=== PATIENT | female | born 1970 | race Caucasian/White ===

== ENCOUNTER → 2016-12-23 | Day surgery (SDC) | payer OTHER ==
--- NOTE | 2016-12-24 14:53 | PATH ---
Cytology Non-Gynecological Report Patient Name: ULISES FELDMAN [facility]. Rec. #: [id number] /Age/Gender: 1970 (Age: 46) / F Account: [id number] Location: [facility] Taken: 12/23/2016 Received: 12/23/2016 Reported: 12/24/2016 Physicians: Torsten Burgos M.D. Specimen(s) Received MISCELLANEOUS FLUID RIGHT BREAST CYST ASPIRATION Clinical History Right breast cyst Final Diagnosis BREAST, RIGHT, 1:00, 7 CM FN, CYST, ASPIRATION : SATISFACTORY FOR EVALUATION. ACELLULAR/CALCIFIC MATERIAL, CONSISTENT WITH CYST CONTENTS. Electronically Signed Phoebe Alexandre M.D. Gross Description Received in 50% alcohol is approximately 50 cc of chalky fluid from which one cytoconcentrate slide and one cell block is prepared.
== END | disposition home or self-care (01) ==
LOC: FRADUS-SUR 09:41
PROVIDERS: ATTEND Surgery Surgical Oncology
PROC: 0H9T3ZX Drainage of Right Breast, Percutaneous Approach, Diagnostic (ICD-10-PCS; principal; 2016-12-23)
DX: N60.01 Solitary cyst of right breast (principal)
CPT/HCPCS: 19000; 76942-TC; 88108

== ENCOUNTER 2017-09-03 13:33 | Emergency (ER) | payer OTHER ==
[2017-09-03 14:01] VITALS: TEMP 98.3; BMI 33.1
--- NOTE | 2017-09-03 14:19 | PDOC ---
History of Present Illness - General Chief Complaint: Pain, Acute Stated Complaint: PAIN/ ABD, BACK Time Seen by Provider: 09/03/17 14:18 - History of Present Illness Initial Comments: 47 year old female with PMH of kidney stones presenting with 2 days of Right lower back pain and right lower abdominal pain. She states that she has had a right lower back pain 2 days prior that has since somewhat migrated to her right lower abdominal quadrant all with decreased appetite. She took some Tylenol with relief. She admits to one episode of non-bilious, non-bloody vomiting with the onset of right lower back pain. She denies urinary symptoms, other GI symptoms, cough, chest pain, headache, palpitations, or other sick symptoms. 09/03/17 14:40 Past History - Past Medical History Allergies/Adverse Reactions: Allergies Allergy/AdvReac Type Severity Reaction Status Date / Time amoxicillin trihydrate Allergy Mild Vomiting Verified 09/03/17 13:59 [From Augmentin] potassium clavulanate Allergy Mild Vomiting Verified 09/03/17 13:59 [From Augmentin] Sulfa (Sulfonamide Allergy Mild Itching Verified 09/03/17 13:59 Antibiotics) Home Medications: Ambulatory Orders NK [No Known Home Medication] 09/03/17 Anemia: No Asthma: Yes (no recent attack) Cancer: No Cardiac Disorders: No CVA: No COPD: No CHF: No Dementia: No Diabetes: No GI Disorders: Yes (gastritis,h/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) Disorders: No HTN: Yes (under control after losing 70 lbs) Hypercholesterolemia: No Kidney Stones: Yes Liver Disease: No Seizures: No Thyroid Disease: No - Surgical History Abdominal Surgery: Yes (UTERUS, OVARIES) Appendectomy: No Cardiac Surgery: No Cholecystectomy: Yes Lung Surgery: No Neurologic Surgery: No Orthopedic Surgery: No - Reproductive History Ectopic : No - Suicide/Smoking/Psychosocial Hx Smoking Status: No Smoking History: Never smoked Have you smoked in the past 12 months: No Number of Cigarettes Smoked Daily: 0 Hx Alcohol Use: No Drug/Substance Use Hx: No Substance Use Type: None Hx Substance Use Treatment: No Review of Systems - Review of Systems Constitutional: No: Chills, Diaphoresis, Fever HEENTM: No: Blurred Vision Respiratory: No: Cough, Shortness of Breath, Wheezing Cardiac (ROS): No: Chest Pain, Lightheadedness ABD/GI: Yes: Poor Appetite, Vomiting. No: Abdominal Distended, Constipated, Diarrhea : No: Burning, Dysuria, Discharge Musculoskeletal: Yes: Back Pain Integumentary: No: Bruising, Change in Color, Erythema, Flushing Neurological: No: Headache, Numbness, Paresthesia, Seizure, Tremors, Weakness *Physical Exam - Vital Signs Last Vital Signs Temp Pulse Resp BP Pulse Ox 98.3 F 77 19 130/95 99 09/03/17 13:59 09/03/17 13:59 09/03/17 13:59 09/03/17 13:59 09/03/17 13:59 - Physical Exam General Appearance: Yes: Nourished, Appropriately Dressed. No: Apparent Distress HEENT: positive: EOMI, SHADY, Normal ENT Inspection, Normal Voice Neck: positive: Trachea midline, Normal Thyroid, Supple. negative: Tender, Rigid Respiratory/Chest: positive: Lungs Clear, Normal Breath Sounds. negative: Chest Tender, Respiratory Distress, Accessory Muscle Use Cardiovascular: positive: Regular Rhythm, Regular Rate. negative: Murmur Gastrointestinal/Abdominal: positive: Normal Bowel Sounds, Tender (RLQ tenderness), Flat, Soft Musculoskeletal: positive: Normal Inspection. negative: CVA Tenderness Extremity: positive: Normal Capillary Refill, Normal Inspection, Normal Range of Motion Integumentary: positive: Normal Color, Dry, Warm Neurologic: positive: Fully Oriented, Alert, Normal Mood/Affect, Normal Response , Motor Strength 5/5 ED Treatment Course - LABORATORY CBC & Chemistry Diagram: 09/03/17 14:38 09/03/17 14:38 Medical Decision Making - Medical Decision Making 47 year old female with PMH of kidney stones presenting with RLQ abd pain and back pain x 2 days. This is most concerning for another kidney stone or an appendicitis. Less likely vascular pathology given lack of risk factors or diverticulitis given location. 09/03/17 15:[address] with non-inflamed appendix and non-dilated bowel loops. No renal stone demonstrated. No acute pathology seen. Symptoms improved after famotidine and viscous lidocaine. 09/03/17 17:49 *DC/Admit/Observation/Transfer Diagnosis at time of Disposition: Abdominal pain Qualifiers: Abdominal location: right lower quadrant Qualified Code(s): R10.31 - Right lower quadrant pain - Discharge Dispostion Disposition: HOME Condition at time of disposition: Improved Admit: No - Referrals Referrals: Gunjan Moura MD [Primary Care Provider] - - Patient Instructions Printed Discharge Instructions: DI for Abdominal Pain-Adult Additional Instructions: Hicimos viktor tomografa computarizada de vasquez abdomen para vasquez dolor abdominal y no vimos ninguna infeccin u obstruccin. Por favor tome Maalox y pepto bismal para el dolor. Por favor, eloisa un seguimiento con vasquez mdico de atencin primaria dentro de viktor semana si vasquez dolor abdominal todava lo est molestando. Si el dolor es demasiado philippe a pesar de usar medicamentos, por favor regrese al departamento de emergencias. Print Language: MOHAWK - Post Discharge Activity
[2017-09-03] MEDS ORDERED: MAG HYDROX/AL HYDROX/SIMETH 30 ML UNIT-DOSE CUP PO ONE (14:41)
[2017-09-03] MEDS ORDERED: MAG HYDROX/AL HYDROX/SIMETH 30 ML UNIT-DOSE CUP ONE (14:52)
[2017-09-03 15:04] LABS: BASOPHIL 0.5 % (0-2.0); EOSINOPHIL 0.8 % (0-4.5); MCH 29.1 pg (25.7-33.7); MCHC 34.2 g/dl (32.0-36.0); MEAN CELL VOLUME 85.1 fl (80-96); MEAN PLT VOLUME 8.4 fl (7.5-11.1); NEUTROPHILS 63.4 % (42.8-82.8); PLATELET COUNT 284 K/MM3 (134-434); RDW 13.1 % (11.6-15.6); WHITE BLOOD COUNT 4.4 K/mm3 (4.0-10.0)
[2017-09-03 15:38] LABS: ALBUMIN 3.8 g/dl (3.4-5.0); ALK PHOS 150 U/L (45-117); ANION GAP 6 (8-16); CALCIUM 8.9 mg/dL (8.5-10.1); CO2 27 mmol/L (21-32); CREATININE 0.7 mg/dL (0.55-1.02); GLUCOSE,RANDOM 88 mg/dL (74-106); MAGNESIUM 2.1 mg/dL (1.8-2.4); SGOT/AST 23 U/L (15-37); SGPT/ALT 41 U/L (12-78); TOT PROT 7.6 g/dl (6.4-8.2)
[2017-09-03 15:42] LABS: URINE APPEARANCE SLCLOUDY; URINE BILIRUBIN NEGATIVE (NEGATIVE); URINE BLOOD NEGATIVE (NEGATIVE); URINE COLOR YELLOW; URINE GLUCOSE (UA) NEGATIVE (NEGATIVE); URINE KETONE NEGATIVE (NEGATIVE); URINE NITRITE NEGATIVE (NEGATIVE); URINE PROTEIN NEGATIVE (NEGATIVE); URINE UROBILINOGEN NEGATIVE mg/dL (0.2-1.0)
--- NOTE | 2017-09-03 15:58 | PDOC ---
Attending Attestation - HPI HPI: 09/03/17 15:58 The patient is a 47 year old with a significant PMH of kidney stones who presents to the emergency department with 4 days of right lower back pain and 2 days of right lower abdominal pain. The patient reports an onset of right lower back pain 4 days ago which has since radiated to her right lower abdomen with associated decreased appetite. Allergies: Amoxicillin trihydrate, Potassium clavulanate,Sulfonamide antibiotics. Past surgical history: Cholecystectomy. 4 C-sections. Hysterectomy. PCP: Dr. Meneses <Artem Newby - Last Filed: 09/03/17 16:00> - Resident Resident Name: Martin Miller - ED Attending Attestation I have performed the following: I have examined & evaluated the patient, The case was reviewed & discussed with the resident, I agree w/resident's findings & plan, Exceptions are as noted - Physicial Exam PE: GENERAL: Awake, alert, and fully oriented, in no acute distress HEAD: No signs of trauma EYES: PERRLA, EOMI, sclera anicteric, conjunctiva clear ENT: Auricles normal inspection, hearing grossly normal, nares patent, oropharynx clear without exudates. Dry mucosa NECK: Normal ROM, supple, no lymphadenopathy, JVD, or masses LUNGS: Breath sounds equal, clear to auscultation bilaterally. No wheezes, and no crackles HEART: Regular rate and rhythm, normal S1 and S2, no murmurs, rubs or gallops ABDOMEN: Soft, +RLQ tenderness, +hyperactive bowel sounds. No guarding, no rebound. No masses EXTREMITIES: Normal range of motion, no edema. No clubbing or cyanosis. No cords, erythema, or tenderness NEUROLOGICAL: Cranial nerves II through XII grossly intact. Normal speech, normal gait SKIN: Warm, Dry, normal turgor, no rashes or lesions noted. - Medical Decision Making Pt with history of hysterectomy, cholecystectomy presenting with abd pain. Noted to have hyperactive bowel sounds and RLQ tenderness. Will obtain CT a/p to r/o appy vs SBO. <Eva Doshi - Last Filed: 09/03/17 16:41>
[2017-09-03] MEDS ORDERED: FAMOTIDINE IV 20 MG/12 ML VIAL IVPB ONE (17:50)
[2017-09-03] MEDS ORDERED: LIDOCAINE VISCOUS 2% ORAL/TOP 100 ML BOTTLE MM ONE (17:52)
[2017-09-03] MEDS ORDERED: PANTOPRAZOLE SOD 40 MG SUSPENSION PACKET PO ONE (17:57)
[2017-09-03] MEDS ORDERED: PANTOPRAZOLE 40 MG TABLET (FP) ONE (17:59)
[2017-09-03] MEDS ORDERED: LIDOCAINE VISCOUS 2% ORAL/TOP 20 ML UNIT-DOSE CUP ONE (17:59)
[2017-09-03 18:10] VITALS: BP 135/97; PULSE 76
[2017-09-03 19:39] LABS: URINE LEUK ESTERASE Negative (NEGATIVE)
== END 2017-09-03 18:41 | disposition home or self-care (01) ==
LOC: JER 13:33
DX: R10.31 Right lower quadrant pain (principal); I10 Essential (primary) hypertension; Z87.442 Personal history of urinary calculi; Z87.09 Personal history of other diseases of the respiratory system; Z87.19 Personal history of other diseases of the digestive system
CPT/HCPCS: 36415; 74176-TC; 80053; 81003; 83690; 83735; 84703; 85025; 87086; 99283-25

== ENCOUNTER 2017-11-24 20:18 | Emergency (ER) | payer OTHER ==
[2017-11-24 20:40] VITALS: BP 122/90; PULSE 87; TEMP 98.3; BMI 33.6
[2017-11-24] MEDS ORDERED: KETOROLAC TROMETHAMINE 60 MG/2 ML VIAL IM ONE (21:27)
[2017-11-24] MEDS ORDERED: KETOROLAC TROMETHAMINE 60 MG/2 ML VIAL ONE (21:28)
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
== END 2017-11-24 21:52 | disposition home or self-care (01) ==
LOC: JERFT 20:18
PROC: 3E0233Z Introduction of Anti-inflammatory into Muscle, Percutaneous Approach (ICD-10-PCS; principal; 2017-11-24)
DX: M54.41 Lumbago with sciatica, right side (principal); I10 Essential (primary) hypertension; J45.909 Unspecified asthma, uncomplicated; Z87.442 Personal history of urinary calculi; Z87.19 Personal history of other diseases of the digestive system
CPT/HCPCS: 99281-25

== ENCOUNTER 2017-11-28 13:31 | Emergency (ER) | payer OTHER ==
[2017-11-28 13:42] VITALS: BP 131/87; PULSE 82; TEMP 98.3; BMI 33.6
[2017-11-28] MEDS ORDERED: DEXAMETHASONE SOD PHOSPHATE 10 MG/1 ML VIAL IM ONE (13:45)
[2017-11-28] MEDS ORDERED: DEXAMETHASONE SOD PHOSPHATE 10 MG/1 ML VIAL ONE (13:50)
--- NOTE | 2017-11-28 13:55 | PDOC ---
History of Present Illness - General Chief Complaint: Back Pain Stated Complaint: BACK PAIN Time Seen by Provider: 11/28/17 13:37 History Source: Patient Exam Limitations: No Limitations - History of Present Illness Initial Comments: 11/28/17 13:50 47 y/o female with lower back pain on right side for 5 days. Was seen at [facility] 5 days ago and given muscle relaxant and Motrin. Patient denies fall, trauma or lifting. No pain down legs or into abdomen. Denies N/V/D/C. Patient has long standing hx of back pain. No fever or chills or procedures. Denies dysuria or incontinence. Pain is worse with movement. Severity: reports: moderate Past History - Past Medical History Allergies/Adverse Reactions: Allergies Allergy/AdvReac Type Severity Reaction Status Date / Time amoxicillin trihydrate Allergy Mild Vomiting Verified 09/03/17 13:59 [From Augmentin] potassium clavulanate Allergy Mild Vomiting Verified 09/03/17 13:59 [From Augmentin] Sulfa (Sulfonamide Allergy Mild Itching Verified 09/03/17 13:59 Antibiotics) Home Medications: Ambulatory Orders Cyclobenzaprine HCl 10 mg PO HS PRN #5 tablet 11/24/17 Famotidine [Pepcid] 20 mg PO BID #20 tablet 11/24/17 Naproxen 375 mg PO BID #20 tablet 11/24/17 Methylprednisolone [Medrol Dose Anup] 4 mg PO ASDIR #21 tablet 11/28/17 Anemia: No Asthma: Yes Cancer: No Cardiac Disorders: No CVA: No COPD: No CHF: No Dementia: No Diabetes: No GI Disorders: Yes (gastritis,h/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) Disorders: Yes (renal stone) HTN: Yes Hypercholesterolemia: No Kidney Stones: Yes Liver Disease: No Seizures: No Thyroid Disease: No - Surgical History Abdominal Surgery: Yes (UTERUS, OVARIES) Appendectomy: No Cardiac Surgery: No Cholecystectomy: Yes Lung Surgery: No Neurologic Surgery: No Orthopedic Surgery: No - Reproductive History Ectopic : No - Suicide/Smoking/Psychosocial Hx Smoking Status: No Smoking History: Never smoked Have you smoked in the past 12 months: No Number of Cigarettes Smoked Daily: 0 Hx Alcohol Use: No Drug/Substance Use Hx: No Substance Use Type: None Hx Substance Use Treatment: No Review of Systems - Review of Systems Able to Perform ROS?: Yes Is the patient limited Turkmen proficient: No Constitutional: No: Chills, Fever Respiratory: No: Cough, Shortness of Breath Cardiac (ROS): No: Chest Pain ABD/GI: No: Diarrhea, Nausea, Vomiting Musculoskeletal: Yes: Back Pain Integumentary: No: Bruising, Erythema Neurological: No: Numbness, Paresthesia All Other Systems: Reviewed and Negative *Physical Exam - Vital Signs Last Vital Signs Temp Pulse Resp BP Pulse Ox 98.3 F 82 20 131/87 100 11/28/17 13:31 11/28/17 13:31 11/28/17 13:31 11/28/17 13:31 11/28/17 13:31 - Physical Exam General Appearance: Yes: Nourished, Appropriately Dressed, Mild Distress HEENT: positive: EOMI, SHADY, Normal ENT Inspection, Normal Voice, Symmetrical, Pharynx Normal Neck: positive: Trachea midline, Normal Thyroid, Supple. negative: Tender, Rigid, Carotid bruit Respiratory/Chest: positive: Lungs Clear, Normal Breath Sounds. negative: Chest Tender, Respiratory Distress Cardiovascular: positive: Regular Rhythm, Regular Rate, S1, S2. negative: Edema , JVD, Murmur Vascular Pulses: Femoral (R): 4+, Femoral (L): 4+, Carotid (R): 4+, Carotid (L) : 4+, Dorsalis-Pedis (R): 4+, Doralis-Pedis (L): 4+ Gastrointestinal/Abdominal: positive: Normal Bowel Sounds, Flat, Soft. negative : Tender, Organomegaly, Pulsatile Mass Lymphatic: negative: Adenopathy, Tenderness, Other Musculoskeletal: positive: Normal Inspection. negative: CVA Tenderness, Vertebral Tenderness (tenderness to right lumbar paravertebral muscles, no spinous process tenderness, full ROM, no erythema, swelling or rash noted) Extremity: positive: Normal Capillary Refill, Normal Inspection, Normal Range of Motion Integumentary: positive: Normal Color, Dry, Warm Neurologic: positive: thread grinder tool II-XII NML intact, Fully Oriented, Alert, Normal Mood/ Affect, Normal Response, Motor Strength 5/5 (strength 5+/5 b/l in LE and UE, no focal deficits noted. Right SLE positive) ED Treatment Course - RADIOLOGY Radiology Studies Ordered: Category Date Time Status SPINE-LUMBAR SACRAL [RAD] Stat Radiology 11/28/17 13:45 Ordered Progress Note - Progress Note Progress Note: Pt with lumbar muscle tenderness, will give Decadon 10 mg IM Obtain x-ray L/S I do not see any focal sign for an epidural abscess, vitals stable Will place on Medrol dose pack with follow up with Orthopedics If worsen return to ER Pt is feeling a little better Consider MRI as out patient If worsen return to ER Pt is in agreement with plan X-ray Lumbar spine: no fracture, straightening of lordotic curve, L5-S1 disc space narrowing *DC/Admit/Observation/Transfer Diagnosis at time of Disposition: Lumbar strain Qualifiers: Encounter type: initial encounter Qualified Code(s): S39.012A - Strain of muscle, fascia and tendon of lower back, initial encounter - Discharge Dispostion Disposition: HOME Condition at time of disposition: Good Admit: No - Referrals Referrals: Rohit Briones MD [Staff Physician] - - Patient Instructions Printed Discharge Instructions: DI for Back Strain or Sprain Additional Instructions: Ice, Motrin, rest Continue muscle relaxant Medrol dose pack as directed If worsen return to ER - Post Discharge Activity
[2017-11-28 14:10] LABS: PH,URINE 6.5 (4.5-8); URINE APPEARANCE Clear; URINE BILIRUBIN Negative (NEGATIVE); URINE BLOOD Negative (NEGATIVE); URINE GLUCOSE (UA) Negative (NEGATIVE); URINE KETONE Negative (NEGATIVE); URINE LEUK ESTERASE Negative (NEGATIVE); URINE NITRITE Negative (NEGATIVE); URINE PROTEIN Negative (NEGATIVE)
[2017-11-28 14:11] LABS: URINE COLOR YELLOW
== END 2017-11-28 14:54 | disposition home or self-care (01) ==
LOC: FER 13:31
PROC: 3E033GC Introduction of Other Therapeutic Substance into Peripheral Vein, Percutaneous Approach (ICD-10-PCS; principal; 2017-11-28)
DX: S39.012A Strain of muscle, fascia and tendon of lower back, initial encounter (principal); X58.XXXA Exposure to other specified factors, initial encounter; Y93.89 Activity, other specified; Y92.9 Unspecified place or not applicable; J45.909 Unspecified asthma, uncomplicated; I10 Essential (primary) hypertension
CPT/HCPCS: 72100-TC-FY; 81003; 84703; 99283-25; J1100

== ENCOUNTER 2018-01-24 16:58 | Emergency (ER) | payer OTHER ==
--- NOTE | 2018-01-24 17:31 | PDOC ---
Rapid Medical Evaluation Time Seen by Provider: 01/24/18 17:29 Medical Evaluation: Allergies Allergy/AdvReac Type Severity Reaction Status Date / Time amoxicillin trihydrate Allergy Mild Vomiting Verified 01/24/18 17:29 [From Augmentin] potassium clavulanate Allergy Mild Vomiting Verified 01/24/18 17:29 [From Augmentin] Sulfa (Sulfonamide Allergy Mild Itching Verified 01/24/18 17:29 Antibiotics) 01/24/18 17:29 I have performed a brief in-person evaluation of this patient. The patient presents with a chief complaint of: 3 days generalized abd pain, pain with eating, N/V/D, last BM today, s/p hysterectomy Pertinent physical exam findings: generalized tenderness to abdomen localized to RUQ I have ordered the following: labs, urine The patient will proceed to the ED for further evaluation. Discharge Disposition - Diagnosis Abdominal pain - Referrals Referrals: Gunjan Moura MD [Primary Care Provider] - - Patient Instructions - Post Discharge Activity
[2018-01-24 17:32] VITALS: BP 148/88; PULSE 78; TEMP 98.4; BMI 35.9
[2018-01-24 18:17] LABS: BASO % 0.3 % (0-2.0); EOS % 0.7 % (0-4.5); HEMATOCRIT 39.7 % (32.4-45.2); HEMOGLOBIN 13.6 GM/dL (10.7-15.3); MCH 29.4 pg (25.7-33.7); MCHC 34.2 g/dl (32.0-36.0); MEAN CELL VOLUME 85.9 fl (80-96); MEAN PLT VOLUME 8.5 fl (7.5-11.1); MONO % 8.1 % (3.8-10.2); NEUT % 60.9 % (42.8-82.8); PLATELET COUNT 292 K/MM3 (134-434); RBC 4.63 M/mm3 (3.60-5.2); RDW 13.1 % (11.6-15.6); WHITE BLOOD COUNT 5.8 K/mm3 (4.0-10.0)
[2018-01-24 19:09] LABS: ALBUMIN 3.7 g/dl (3.4-5.0); ALK PHOS 143 U/L (45-117); ANION GAP 6 (8-16); BILIRUBIN,TOTAL 0.6 mg/dL (0.2-1.0); BLOOD UREA NITROGEN 15 mg/dL (7-18); CALCIUM 8.7 mg/dL (8.5-10.1); CHLORIDE 109 mmol/L (98-107); CO2 25 mmol/L (21-32); CREATININE 0.7 mg/dL (0.55-1.02); GLUCOSE,RANDOM 93 mg/dL (74-106); POTASSIUM 4.1 mmol/L (3.5-5.1); SGOT/AST 22 U/L (15-37); SGPT/ALT 26 U/L (12-78); SODIUM 140 mmol/L (136-145); TOT PROT 7.6 g/dl (6.4-8.2)
--- NOTE | 2018-01-24 19:54 | PDOC ---
History of Present Illness - General History Source: Patient Exam Limitations: No Limitations - History of Present Illness Initial Comments: 01/24/18 19:56 The patient is a 47 year old female, with a significant PMH of kidney stones who presents to the emergency department with 3 days of right lower back and right upper quadrant pain. The patient describes the pain as diffuse, sharp, and constant. The patient reports she has had kidney stones in the past but states this pain is different. The patient denies chest pain, shortness of breath, headache and dizziness. Denies fever, chills, nausea, vomit, diarrhea and constipation. Denies dysuria, frequency, urgency and hematuria. Allergies: Amoxicillin trihydrate, Potassium clavulanate,Sulfonamide antibiotics. Past surgical history: Cholecystectomy. 4 C-sections. Hysterectomy. PCP: Dr. 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) Disorders: Yes (renal stone) HTN: Yes Hypercholesterolemia: No Kidney Stones: Yes Liver Disease: No Seizures: No Thyroid Disease: No - Surgical History Abdominal Surgery: Yes (UTERUS, OVARIES) Appendectomy: No Cardiac Surgery: No Cholecystectomy: Yes Lung Surgery: No Neurologic Surgery: No Orthopedic Surgery: No - Reproductive History Ectopic : No - Suicide/Smoking/Psychosocial Hx Smoking Status: No Smoking History: Never smoked Have you smoked in the past 12 months: No Number of Cigarettes Smoked Daily: 0 Information on smoking cessation initiated: No Hx Alcohol Use: No Drug/Substance Use Hx: No Substance Use Type: None Hx Substance Use Treatment: No <Alesia Ibarra - Last Filed: 01/25/18 01:31> - Past Medical History Allergies/Adverse Reactions: Allergies Allergy/AdvReac Type Severity Reaction Status Date / Time amoxicillin trihydrate Allergy Mild Vomiting Verified 01/24/18 17:29 [From Augmentin] potassium clavulanate Allergy Mild Vomiting Verified 01/24/18 17:29 [From Augmentin] Sulfa (Sulfonamide Allergy Mild Itching Verified 01/24/18 17:29 Antibiotics) Home Medications: Ambulatory Orders NK [No Known Home Medication] 01/24/18 Review of Systems - Review of Systems Able to Perform ROS?: Yes Comments:: 01/24/18 20:05 A complete review of 10 out of 10 review of systems is taken and is negative apart from what is previously mentioned below and in the HPI. <Aileen Orlando - Last Filed: 01/24/18 20:01> *Physical Exam - Vital Signs Last Vital Signs Temp Pulse Resp BP Pulse Ox 98.4 F 78 18 148/88 100 01/24/18 17:29 01/24/18 17:29 01/24/18 17:29 01/24/18 17:29 01/24/18 17:29 - Physical Exam Comments: 01/24/18 20:06 General Appearance: No acute distress, well nourished, well developed Head: Atraumatic Eyes: Pupils equal reactive round, extraocular movement intact Cardiac: Regular rate and rhythm, no murmurs, no rubs, no gallops Lungs: Clear to auscultation bilateral, good air movement bilaterally Abdomen: (+) Right upper quadrant tenderness. Soft, nondistended, normal bowel sounds. Back: (+) Right lower back tenderness. Extremities: Full range of motion to all extremities, no cyanosis, clubbing, or edema Skin: Warm and dry, no rashes or lesions, no rash, no petechiae Neuro: AOX3; Cranial Nerves 2-12 grossly intact, Strength intact to all extremities, Sensation intact to all extremities. Psych: Normal mood, normal affect <Aileen Orlando - Last Filed: 01/24/18 20:01> - Vital Signs Last Vital Signs Temp Pulse Resp BP Pulse Ox 98.4 F 78 18 148/88 100 01/24/18 17:29 01/24/18 17:29 01/24/18 17:29 01/24/18 17:29 01/24/18 17:29 <Alesia Ibarra - Last Filed: 01/25/18 01:31> ED Treatment Course - LABORATORY CBC & Chemistry Diagram: 01/24/18 18:00 01/24/18 18:00 - ADDITIONAL ORDERS Additional order review: Laboratory Results 01/24/18 01/24/18 18:00 18:00 Sodium 140 Potassium 4.1 Chloride 109 H Carbon Dioxide 25 Anion Gap 6 L BUN 15 Creatinine 0.7 Creat Clearance w eGFR > 60 Random Glucose 93 Calcium 8.7 Total Bilirubin 0.6 D AST 22 ALT 26 Alkaline Phosphatase 143 H Total Protein 7.6 Albumin 3.7 Lipase 177 01/24/18 18:00 RBC 4.63 MCV 85.9 MCHC 34.2 RDW 13.1 MPV 8.5 Neutrophils % 60.9 Lymphocytes % 30.0 Monocytes % 8.1 Eosinophils % 0.7 Basophils % 0.3 <Aileen Orlando - Last Filed: 01/24/18 20:01> - LABORATORY CBC & Chemistry Diagram: 01/24/18 18:00 01/24/18 18:00 - ADDITIONAL ORDERS Additional order review: Laboratory Results 01/24/18 01/24/18 18:00 18:00 Sodium 140 Potassium 4.1 Chloride 109 H Carbon Dioxide 25 Anion Gap 6 L BUN 15 Creatinine 0.7 Creat Clearance w eGFR > 60 Random Glucose 93 Calcium 8.7 Total Bilirubin 0.6 D AST 22 ALT 26 Alkaline Phosphatase 143 H Total Protein 7.6 Albumin 3.7 Lipase 177 01/24/18 18:00 RBC 4.63 MCV 85.9 MCHC 34.2 RDW 13.1 MPV 8.5 Neutrophils % 60.9 Lymphocytes % 30.0 Monocytes % 8.1 Eosinophils % 0.7 Basophils % 0.3 <Alesia Ibarra - Last Filed: 01/25/18 01:31> Medical Decision Making - Medical Decision Making 01/24/18 21:41 I discussed imaging studies. This patient, but she does not want any more CAT scans. She is had about 6 CAT scans and more in the last few years. She does not have a fever. No vomiting or diarrhea or any nausea right now. The area of pain seems to be epigastric and so we will give her a proton pump inhibitor and some Maalox. Review of her labs shows a normal CBC, no anemia, no leukocytosis Chemistries, liver function tests are normal, electrolytes are normal, kidney function is within normal limits and glucose is normal. Urinalysis is negative for any urinary tract infection. Patient states she just wants to go home now. She DOES NOT want an imaging study. she said she would see Dr Alaniz We discussed giving her some Maalox and PPI Plan is to follow-up with And be discharged with copies of her lab work 01/25/18 01:30 <Alesia Ibarra - Last Filed: 01/25/18 01:31> *DC/Admit/Observation/Transfer - Attestations Scribe Attestion: 01/24/18 20:07 Documentation prepared by Aileen Orlando, acting as medical biller coder for Alesia Ibarra MD. <Aileen Orlando - Last Filed: 01/24/18 20:01> <Alesia Ibarra - Last Filed: 01/25/18 01:31> Diagnosis at time of Disposition: Abdominal pain Qualifiers: Abdominal location: epigastric Qualified Code(s): R10.13 - Epigastric pain - Discharge Dispostion Disposition: HOME Condition at time of disposition: Fair - Referrals Referrals: Gunjan Moura MD [Primary Care Provider] - - Patient Instructions Printed Discharge Instructions: DI for Abdominal Pain-Adult, DI for Epigastric Pain Additional Instructions: You were here for pain in your abdomen The tests done did not show any signs of infection overall Your urine did not show urinary tract infection or stones We are discharging you home to follow up with your primary care as soon as possible Please bring along the results of your lab tests when you go If you feel you are not getting better, or have shortness of breath, or chest pain please go to the nearest emergency room - Post Discharge Activity
--- NOTE | 2018-01-24 20:12 | PDOC ---
History of Present Illness - General Chief Complaint: Pain Stated Complaint: ABD PAIN Time Seen by Provider: 01/24/18 17:29 History Source: Patient Exam Limitations: No Limitations - History of Present Illness Initial Comments: 01/24/18 21:15 Pt is a 47 yo F with PMHx of kidney stones, gastritis, migraine, with multiple previous surgeries (c/ sections x4, oophorectomy, hysterectomy, cholecystectomy ) now presenting with lower abdominal pain radiating to R back since wednesday. The pain was initially 7/10, worsened by ingestion of food and improved by avoiding foods. No nausea or vomiting, no fever. Pt reports one episode of hematuria 5 days ago with associated burning during micturition. No diarrhea or constipation. Last BM was this am of brown, non bloody stools. Pt says pain is now now about 4/10. Timing/Duration: changing over time Severity: mild Associated Symptoms: denies: chest pain, cough, diaphoresis, fever/chills, headaches, loss of appetite, malaise, nausea/vomiting, shortness of breath, syncope, weakness Past History - Past Medical History Allergies/Adverse Reactions: Allergies Allergy/AdvReac Type Severity Reaction Status Date / Time amoxicillin trihydrate Allergy Mild Vomiting Verified 01/24/18 17:29 [From Augmentin] potassium clavulanate Allergy Mild Vomiting Verified 01/24/18 17:29 [From Augmentin] Sulfa (Sulfonamide Allergy Mild Itching Verified 01/24/18 17:29 Antibiotics) Home Medications: Ambulatory Orders NK [No Known Home Medication] 01/24/18 Anemia: No Asthma: Yes Cancer: No Cardiac Disorders: No CVA: No COPD: No CHF: No DVT: No Dementia: No Diabetes: No GI Disorders: Yes (gastritis,h/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) Disorders: Yes (renal stone) HTN: Yes Hypercholesterolemia: No Kidney Stones: Yes Liver Disease: No Seizures: No Thyroid Disease: No - Surgical History Abdominal Surgery: Yes (UTERUS, OVARIES) Appendectomy: No Cardiac Surgery: No Cholecystectomy: Yes Lung Surgery: No Neurologic Surgery: No Orthopedic Surgery: No - Reproductive History Ectopic : No - Suicide/Smoking/Psychosocial Hx Smoking Status: No Smoking History: Never smoked Have you smoked in the past 12 months: No Number of Cigarettes Smoked Daily: 0 Information on smoking cessation initiated: No Hx Alcohol Use: No Drug/Substance Use Hx: No Substance Use Type: None Hx Substance Use Treatment: No Review of Systems - Review of Systems Able to Perform ROS?: Yes Is the patient limited Uzbek proficient: Yes Constitutional: No: Chills, Diaphoresis, Fever HEENTM: No: Blurred Vision, Throat Pain, Difficulty Swallowing Respiratory: Yes: Cough (Patient has night cough, has asthma). No: Shortness of Breath Cardiac (ROS): No: Chest Pain, Edema ABD/GI: Yes: Abdominal Distended. No: Difficulty Swallowing, Nausea, Poor Appetite, Vomiting : Yes: Burning, Dysuria, Hematuria (one episode 5 days ago) Musculoskeletal: Yes: Back Pain. No: Joint Pain, Muscle Pain *Physical Exam - Vital Signs Last Vital Signs Temp Pulse Resp BP Pulse Ox 98.4 F 78 18 148/88 100 01/24/18 17:29 01/24/18 17:29 01/24/18 17:29 01/24/18 17:29 01/24/18 17:29 ED Treatment Course - LABORATORY CBC & Chemistry Diagram: 01/24/18 18:00 01/24/18 18:00 - ADDITIONAL ORDERS Additional order review: Laboratory Results 01/24/18 01/24/18 18:00 18:00 Sodium 140 Potassium 4.1 Chloride 109 H Carbon Dioxide 25 Anion Gap 6 L BUN 15 Creatinine 0.7 Creat Clearance w eGFR > 60 Random Glucose 93 Calcium 8.7 Total Bilirubin 0.6 D AST 22 ALT 26 Alkaline Phosphatase 143 H Total Protein 7.6 Albumin 3.7 Lipase 177 01/24/18 18:00 RBC 4.63 MCV 85.9 MCHC 34.2 RDW 13.1 MPV 8.5 Neutrophils % 60.9 Lymphocytes % 30.0 Monocytes % 8.1 Eosinophils % 0.7 Basophils % 0.3 Medical Decision Making - Medical Decision Making 01/24/18 21:43 CBC, CMP, UA- within normal limits Pt declines another CT abdomen Will discharge to follow up with her PCP *DC/Admit/Observation/Transfer Diagnosis at time of Disposition: Abdominal pain - Discharge Dispostion Disposition: HOME Condition at time of disposition: Fair Admit: No - Referrals Referrals: Gunjan Moura MD [Primary Care Provider] - - Patient Instructions Printed Discharge Instructions: DI for Abdominal Pain-Adult Additional Instructions: You were here for pain in your abdomen The tests done did not show any signs of infection overall Your urine did not show urinary tract infection or stones We are discharging you home to follow up with your primary care as soon as possible If you feel you are not getting better, or have shortness of breath, or chest pain please go to the nearest emergency room - Post Discharge Activity - Attestations Physician Attestion: 01/24/18 21:52 Comfort Gillian AC
[2018-01-24 21:05] LABS: URINE APPEARANCE CLEAR; URINE BILIRUBIN NEGATIVE (<2.0 mg/dL); URINE BLOOD NEGATIVE (NEGATIVE); URINE COLOR LTYELLOW; URINE GLUCOSE (UA) NEGATIVE (NEGATIVE); URINE KETONE NEGATIVE (NEGATIVE); URINE LEUK ESTERASE NEGATIVE (NEGATIVE); URINE NITRITE NEGATIVE (NEGATIVE); URINE PROTEIN NEGATIVE (NEGATIVE); URINE UROBILINOGEN NEGATIVE mg/dL (0.2-1.0)
[2018-01-24] MEDS ORDERED: RANITIDINE HCL 150 MG TABLET (FP) PO ONE (21:46)
[2018-01-24] MEDS ORDERED: MAG HYDROX/AL HYDROX/SIMETH -MYLANTA- ORAL SUSPENSION PO ONE (21:46)
[2018-01-24] MEDS ORDERED: MAG HYDROX/AL HYDROX/SIMETH 30 ML UNIT-DOSE CUP ONE (21:57)
[2018-01-24] MEDS ORDERED: RANITIDINE HCL 150 MG TABLET (FP) ONE (21:57)
== END 2018-01-24 22:00 | disposition home or self-care (01) ==
LOC: JER 16:58
DX: R10.30 Lower abdominal pain, unspecified (principal); Z87.442 Personal history of urinary calculi; Z87.19 Personal history of other diseases of the digestive system; Z88.8 Allergy status to other drugs, medicaments and biological substances
CPT/HCPCS: 36415; 80053; 81003; 83690; 85025; 87086; 99284-25

== ENCOUNTER 2019-01-25 16:06 | Emergency (ER) | payer OTHER ==
--- NOTE | 2019-01-25 16:09 | PDOC ---
Rapid Medical Evaluation Time Seen by Provider: 01/25/19 16:07 Medical Evaluation: Allergies Allergy/AdvReac Type Severity Reaction Status Date / Time amoxicillin trihydrate Allergy Mild Vomiting Verified 01/24/18 17:29 [From Augmentin] potassium clavulanate Allergy Mild Vomiting Verified 01/24/18 17:29 [From Augmentin] Sulfa (Sulfonamide Allergy Mild Itching Verified 01/24/18 17:29 Antibiotics) 01/25/19 16:08 I have performed a brief in-person evaluation of this patient. The patient presents with a chief complaint of: abdominal pain x2 days- recently treated for UTI Pertinent physical exam findings: Abd SNTND. -CVAT. I have ordered the following: labs, urine The patient will proceed to the ED for further evaluation. 01/25/19 16:09 Discharge Disposition - Diagnosis Abdominal pain - Referrals - Patient Instructions - Post Discharge Activity
[2019-01-25 16:12] VITALS: BMI 36.6
[2019-01-25 16:33] LABS: BASO % 0.3 % (0-2.0); EOS % 1.2 % (0-4.5); HEMATOCRIT 40.4 % (32.4-45.2); HEMOGLOBIN 13.6 GM/dL (10.7-15.3); LYMPH % 27.7 % (8-40); MCH 29.2 pg (25.7-33.7); MCHC 33.7 g/dl (32.0-36.0); MEAN CELL VOLUME 86.6 fl (80-96); MEAN PLT VOLUME 8.7 fl (7.5-11.1); MONO % 7.5 % (3.8-10.2); NEUT % 63.3 % (42.8-82.8); PLATELET COUNT 273 K/MM3 (134-434); RBC 4.66 M/mm3 (3.60-5.2); RDW 13.1 % (11.6-15.6); WHITE BLOOD COUNT 6.4 K/mm3 (4.0-10.0)
[2019-01-25 16:44] LABS: URINE APPEARANCE CLEAR; URINE BILIRUBIN NEGATIVE (NEGATIVE); URINE COLOR YELLOW; URINE GLUCOSE (UA) NEGATIVE (NEGATIVE); URINE KETONE NEGATIVE (NEGATIVE); URINE LEUK ESTERASE NEGATIVE (NEGATIVE); URINE NITRITE NEGATIVE (NEGATIVE); URINE PROTEIN NEGATIVE (NEGATIVE)
[2019-01-25 17:16] LABS: ALBUMIN 3.7 g/dl (3.4-5.0); ALK PHOS 153 U/L (45-117); ANION GAP 4 MMOL/L (8-16); BILIRUBIN,TOTAL 0.8 mg/dL (0.2-1); BLOOD UREA NITROGEN 15 mg/dL (7-18); CALCIUM 8.9 mg/dL (8.5-10.1); CHLORIDE 105 mmol/L (98-107); CO2 29 mmol/L (21-32); CREATININE 0.9 mg/dL (0.55-1.3); GLUCOSE,RANDOM 95 mg/dL (74-106); LIPASE 152 U/L (73-393); POTASSIUM 4.4 mmol/L (3.5-5.1); SGOT/AST 33 U/L (15-37); SGPT/ALT 31 U/L (13-61); SODIUM 138 mmol/L (136-145); TOT PROT 7.6 g/dl (6.4-8.2)
--- NOTE | 2019-01-25 17:53 | PDOC ---
History of Present Illness - General Chief Complaint: Pain Stated Complaint: STOMACH PAIN Time Seen by Provider: 01/25/19 16:07 - History of Present Illness Initial Comments: 48 year old female with PMH of kidney stones, gastritis, migraine, with multiple previous surgeries (c/ sections x4, oophorectomy, hysterectomy, cholecystectomy) now presenting with lower abdominal pain for the past two days in her epigastrium unrelated to movement, food, or other factors. She is being treated for a UTI with cipro prescribed by Dr. Alaniz. She also admits to occasional NBNB vomit, nausea, and diarrhea. Denies fevers, chills, chest pain, SOB, headache, or other symptoms. 01/25/19 17:55 Past History - Past Medical History Allergies/Adverse Reactions: Allergies Allergy/AdvReac Type Severity Reaction Status Date / Time amoxicillin trihydrate Allergy Mild Vomiting Verified 01/25/19 16:12 [From Augmentin] potassium clavulanate Allergy Mild Vomiting Verified 01/25/19 16:12 [From Augmentin] Sulfa (Sulfonamide Allergy Mild Itching Verified 01/25/19 16:12 Antibiotics) Home Medications: Ambulatory Orders Mag Hydrox/Al Hydrox/Simeth [Mylanta Suspension -] 30 ml PO Q6H 10 Days #1 bottle 01/25/19 Anemia: No Asthma: Yes Cancer: No Cardiac Disorders: No CVA: No COPD: No CHF: No DVT: No Dementia: No Diabetes: No GI Disorders: Yes (gastritis,h/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) Disorders: Yes (renal stone) HTN: Yes Hypercholesterolemia: No Kidney Stones: Yes Liver Disease: No Seizures: No Thyroid Disease: No - Surgical History Abdominal Surgery: Yes (UTERUS, OVARIES) Appendectomy: No Cardiac Surgery: No Cholecystectomy: Yes Lung Surgery: No Neurologic Surgery: No Orthopedic Surgery: No - Reproductive History Ectopic : No - Suicide/Smoking/Psychosocial Hx Smoking Status: No Smoking History: Never smoked Have you smoked in the past 12 months: No Number of Cigarettes Smoked Daily: 0 Information on smoking cessation initiated: No Hx Alcohol Use: No Drug/Substance Use Hx: No Substance Use Type: None Hx Substance Use Treatment: No Review of Systems - Review of Systems Constitutional: No: Chills, Diaphoresis, Fever Respiratory: No: Cough, Orthopnea, Shortness of Breath Cardiac (ROS): No: Chest Pain, Edema, Irregular Heart Rate ABD/GI: No: Diarrhea, Nausea, Vomiting : No: Burning, Dysuria, Discharge Musculoskeletal: No: Back Pain, Gout, Joint Pain Integumentary: No: Bruising, Erythema Neurological: No: Headache, Numbness, Paresthesia Psychiatric: No: Anxiety, Depression Hematologic/Lymphatic: No: Anemia, Blood Clots, Easy Bleeding *Physical Exam - Vital Signs Last Vital Signs Temp Pulse Resp BP Pulse Ox 98.5 F 99 H 18 142/88 98 01/25/19 16:09 01/25/19 16:09 01/25/19 16:09 01/25/19 16:09 01/25/19 16:09 - Physical Exam General Appearance: Yes: Nourished, Appropriately Dressed. No: Apparent Distress HEENT: positive: EOMI, SHADY, Normal ENT Inspection, Normal Voice Neck: positive: Trachea midline, Normal Thyroid, Supple. negative: Tender, Rigid Respiratory/Chest: positive: Lungs Clear, Normal Breath Sounds. negative: Chest Tender, Respiratory Distress, Accessory Muscle Use Cardiovascular: positive: Regular Rhythm, Regular Rate Gastrointestinal/Abdominal: positive: Normal Bowel Sounds, Tender (mild epigastric tenderness), Flat, Soft Lymphatic: negative: Adenopathy, Tenderness Musculoskeletal: positive: Normal Inspection. negative: Decreased Range of Motion Extremity: positive: Normal Capillary Refill, Normal Inspection, Normal Range of Motion. negative: Tender Integumentary: positive: Normal Color, Dry, Warm Neurologic: positive: Fully Oriented, Alert, Normal Mood/Affect, Normal Response , Motor Strength 5/5 ED Treatment Course - LABORATORY CBC & Chemistry Diagram: 01/25/19 16:19 01/25/19 16:19 - ADDITIONAL ORDERS Additional order review: Laboratory Results 01/25/19 01/25/19 01/25/19 16:19 16:19 16:19 Sodium 138 Potassium 4.4 Chloride 105 Carbon Dioxide 29 Anion Gap 4 L BUN 15 Creatinine 0.9 Creat Clearance w eGFR 67.11 Random Glucose 95 Calcium 8.9 Total Bilirubin 0.8 AST 33 ALT 31 Alkaline Phosphatase 153 H Total Protein 7.6 Albumin 3.7 Lipase 152 Urine Color Yellow Urine Appearance Clear Urine pH 6.0 Ur Specific [place] 1.016 Urine Protein Negative Urine Glucose (UA) Negative Urine Ketones Negative Urine Blood Negative Urine Nitrite Negative Urine Bilirubin Negative Urine Urobilinogen 1.0 Ur Leukocyte Esterase Negative Urine HCG, Qual Negative 01/25/19 16:19 RBC 4.66 MCV 86.6 MCHC 33.7 RDW 13.1 MPV 8.7 Neutrophils % 63.3 Lymphocytes % 27.7 Monocytes % 7.5 Eosinophils % 1.2 Basophils % 0.3 Medical Decision Making - Medical Decision Making 48 year old female presenting with epigastric abdominal pain and mild epigastric TTP on ciprofloxacin for a UTI. Labs all WNL and patient declining further medication or workup. 01/25/19 18:52 Patient was originally deferring workup then agreed. All labs WNL. Minor relief with Pepcid, Maalox, and famotidine. CT abdomen/ pelvis CT with IV contrast negative for pathology. Tolerated PO water and crackers. Will DC home with GI follow up and return precautions. 01/25/19 22:16 *DC/Admit/Observation/Transfer Diagnosis at time of Disposition: Abdominal pain Qualifiers: Abdominal location: epigastric Qualified Code(s): R10.13 - Epigastric pain - Discharge Dispostion Disposition: HOME Condition at time of disposition: Improved Decision to Admit order: No - Prescriptions Prescriptions: Mag Hydrox/Al Hydrox/Simeth [Mylanta Suspension -] 30 ml PO Q6H 10 Days #1 bottle - Referrals Referrals: Gunjan Moura MD [Primary Care Provider] - - Patient Instructions Printed Discharge Instructions: DI for Abdominal Pain-Adult Additional Instructions: Herman tomografa computarizada no mostr ningn problema en el estmago, scot puede tener viktor lcera. Use Maalox para el dolor abdominal y consulte con el mdlavon gastrointestinal en esta hoja. Regrese a la derrick de emergencias si tiene sntomas nuevos o que empeoran. - Post Discharge Activity
[2019-01-25] MEDS ORDERED: ONDANSETRON 4 MG/2 ML VIAL IVPUSH ONE ×2 (18:22→19:27)
[2019-01-25] MEDS ORDERED: MAG HYDROX/AL HYDROX/SIMETH 30 ML UNIT-DOSE CUP PO ONE (18:22)
[2019-01-25] MEDS ORDERED: FAMOTIDINE 20 MG/50 ML IVPB 20 MG/50 ML MG IVPB ONE ×4 (18:22→19:32)
[2019-01-25] MEDS ORDERED: SODIUM CHLORIDE 0.9% 500 ML INFUS.BAG IV ONE ×2 (18:24→19:27)
[2019-01-25 18:31] VITALS: BP 126/84; PULSE 72; TEMP 97.6
[2019-01-25] MEDS ORDERED: MAG HYDROX/AL HYDROX/SIMETH 30 ML UNIT-DOSE CUP ONE (18:41)
[2019-01-25] MEDS ORDERED: ONDANSETRON 4 MG/2 ML VIAL ONE ×2 (18:41→19:32)
[2019-01-25] MEDS ORDERED: SUCRALFATE 1 GM/10 ML UNIT DOSE CUPS PO ONE (21:22)
--- NOTE | 2019-01-25 22:13 | PDOC ---
Documentation entered by Bernabe Toscano SCRIBE, acting as scribe for Radha Mccrary DO. Radha Mccrary DO: This documentation has been prepared by the [place] henao Matthew, SCRIBE, under my direction and personally reviewed by me in its entirety. I confirm that the documentation accurately reflects all work, treatment, procedures, and medical decision making performed by me. Attending Attestation - Resident Resident Name: Nyasia Milleralsam - HPI HPI: 01/25/19 19:27 Patient is a 48 year old female with a significant past medical history of kidney stones, gastritis, migraine,who presents to the ED with complaints of lower abdominal pain that began x2 days ago. Patient reports experiencing sudden epigastric abdominal pain that she states does not increase with positional movement, or food ingestion. She reports being currently treated for UTI with cipro by her PCP. Patient reports experiencing intermittent associated vomiting, nausea and diarrhea. Denies chest pain, sob. Denies fevers, chills. Denies contact with sick individuals, out of state travelling. Denies constipation. Denies dysuria, hematuria. Denies any other symptoms. Allergies: amoxicillin trihydrate, potassium clavulanate, Sulfa Social history: No smoking. No alcohol. No illicit drugs. Surgical history: c/ sections x4, oophorectomy, hysterectomy, cholecystectomy PMD: Dr. Alaniz - Physicial Exam PE: 01/25/19 19:27 Agree with residents Physical Exam. - Medical Decision Making 01/25/19 22:12 48-year-old female with epigastric pain vomiting and diarrhea CT scan of the abdomen and pelvis shows no significant acute abnormality Patient given IV fluids anti-emetics and antacids in the emergency department with some improvement She will be discharged and advised to follow up with both primary care and gastroenterology and to return if worse
[2019-01-25] MEDS ORDERED: SUCRALFATE 1 GM TABLET (FP) ONE (22:29)
--- NOTE | 2019-01-26 12:07 | EKG ---
Test Reason : Blood Pressure : / mmHG Vent. Rate : 071 BPM Atrial Rate : 071 BPM P-R Int : 142 ms QRS Dur : 082 ms QT Int : 396 ms P-R-T Axes : 056 045 044 degrees QTc Int : 430 ms POOR DATA QUALITY, INTERPRETATION MAY BE ADVERSELY AFFECTED NORMAL SINUS RHYTHM POSSIBLE LEFT ATRIAL ENLARGEMENT BORDERLINE ECG WHEN COMPARED WITH ECG OF 06-MAR-2013 12:59, NO SIGNIFICANT CHANGE WAS FOUND Confirmed by ANDRÉS FINE MD ([id number]) on 01/26/2019 12:06:52 PM Referred By: Confirmed By:ANDRÉS FINE MD
== END 2019-01-25 22:38 | disposition home or self-care (01) ==
LOC: JER 16:06
PROC: 3E033GC Introduction of Other Therapeutic Substance into Peripheral Vein, Percutaneous Approach (ICD-10-PCS; principal; 2019-01-25)
PROC: 3E0337Z Introduction of Electrolytic and Water Balance Substance into Peripheral Vein, Percutaneous Approach (ICD-10-PCS; 2019-01-25)
DX: R10.13 Epigastric pain (principal); Z87.442 Personal history of urinary calculi
CPT/HCPCS: 36415; 74177-TC; 80053; 81003; 83690; 84703; 85025; 87086; 93005; 93010; 99282-25

== ENCOUNTER 2019-02-17 07:41 | Emergency (ER) | payer OTHER ==
[2019-02-17 07:53] VITALS: PULSE 82; BMI 34.5
--- NOTE | 2019-02-17 08:14 | PDOC ---
History of Present Illness - General Chief Complaint: Shortness of Breath Stated Complaint: ASTHMA Time Seen by Provider: 02/17/19 08:14 History Source: Patient Exam Limitations: Language Barrier - History of Present Illness Initial Comments: 02/17/19 09:07 48 yo F with PMhx of Asthma presents with 1 day history of shortness of breath. She states she endoscopy 3 days prior and since then her chest has felt "tight" . Today she woke up and was very short of breath. She took he singulair last night and tried her inhaler today with little to no symptom relief. She has very infrequent exacerbations. Last one was couple years ago. She was intubated once s/p surgical procedure. She has not been on recent steroids. Denies URI symptoms no sputum ,fever or chills. Denies urinary symptoms, abdominal pain, nausea or vomiting. Timing/Duration: 1-3 hours Severity: moderate Past History - Travel Traveled outside of the country in the last 30 days: No Close contact w/someone who was outside of country & ill: No - Past Medical History Allergies/Adverse Reactions: Allergies Allergy/AdvReac Type Severity Reaction Status Date / Time amoxicillin trihydrate Allergy Mild Vomiting Verified 01/25/19 16:12 [From Augmentin] potassium clavulanate Allergy Mild Vomiting Verified 01/25/19 16:12 [From Augmentin] Sulfa (Sulfonamide Allergy Mild Itching Verified 01/25/19 16:12 Antibiotics) Home Medications: Ambulatory Orders Albuterol 0.083% Nebulizer Yolande [Ventolin 0.083% Nebulizer Soln -] 1 amp NEB PRN #30 amp 02/17/19 Albuterol Sulfate 0.042% [Ventolin 0.042% (Half-Strength) -] 1 amp NEB DAILY Albuterol Sulfate Inhaler - [Ventolin Hfa Inhaler -] 1 puff IH PRN PRN #1 inhaler 02/17/19 Metronidazole 250 mg PO DAILY 02/17/19 Nebulizer [Altera Nebulizer] 1 each MC PRN #1 each 02/17/19 Pantoprazole Sodium 40 mg PO DAILY 02/17/19 Anemia: No Asthma: Yes Cancer: No Cardiac Disorders: No CVA: No COPD: No CHF: No DVT: No Dementia: No Diabetes: No GI Disorders: Yes (gastritis,h/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) Disorders: Yes (renal stone) HTN: Yes Hypercholesterolemia: No Kidney Stones: Yes Liver Disease: No Seizures: No Thyroid Disease: No - Surgical History Abdominal Surgery: Yes (UTERUS, OVARIES) Appendectomy: No Cardiac Surgery: No Cholecystectomy: Yes Lung Surgery: No Neurologic Surgery: No Orthopedic Surgery: No - Reproductive History Ectopic : No - Suicide/Smoking/Psychosocial Hx Smoking Status: No Smoking History: Never smoked Have you smoked in the past 12 months: No Number of Cigarettes Smoked Daily: 0 Information on smoking cessation initiated: No Hx Alcohol Use: No Drug/Substance Use Hx: No Substance Use Type: None Hx Substance Use Treatment: No Review of Systems - Review of Systems Constitutional: No: Chills, Diaphoresis HEENTM: No: Recent change in vision Respiratory: Yes: Cough, Shortness of Breath, SOB with Exertion. No: Wheezing, Productive cough Cardiac (ROS): No: Chest Pain, Edema, Irregular Heart Rate, Lightheadedness ABD/GI: No: Difficulty Swallowing : No: Burning, Dysuria Musculoskeletal: Yes: Back Pain (chronic) *Physical Exam - Vital Signs Last Vital Signs Temp Pulse Resp BP Pulse Ox 98.2 F 82 17 136/86 100 02/17/19 07:48 02/17/19 07:48 02/17/19 07:48 02/17/19 07:48 02/17/19 07:48 - Physical Exam General Appearance: Yes: Appropriately Dressed, Mild Distress HEENT: positive: SHADY, Normal ENT Inspection, Normal Voice, Pharynx Normal Neck: positive: Supple. negative: Tender Respiratory/Chest: positive: Decreased Breath Sounds. negative: Chest Tender, Accessory Muscle Use, Wheezing Cardiovascular: positive: Regular Rhythm, Regular Rate, S1, S2. negative: Edema , JVD, Murmur Vascular Pulses: Dorsalis-Pedis (R): 2+, Doralis-Pedis (L): 2+ Gastrointestinal/Abdominal: positive: Normal Bowel Sounds, Flat, Soft Musculoskeletal: positive: Normal Inspection, CVA Tenderness Extremity: positive: Normal Range of Motion Neurologic: positive: market development specialist II-XII NML intact, Fully Oriented, Alert, Normal Mood/ Affect Medical Decision Making - Medical Decision Making 02/17/19 09:24 48 yo F presents for acute exacerbation of Asthma. Peak flow performed 280 given her age and height she should be 474 -ordered CXR and Duonebs Q15M x4 02/17/19 10:57 Patient is feeling better. breathing has improved. CXR was negative for acute pathology. 02/17/19 11:57 Will discharge home with albuterol refill and nebulizer. *DC/Admit/Observation/Transfer Diagnosis at time of Disposition: Asthma exacerbation, mild - Discharge Dispostion Disposition: HOME Condition at time of disposition: Stable Decision to Admit order: No - Prescriptions Prescriptions: Albuterol 0.083% Nebulizer Yolande [Ventolin 0.083% Nebulizer Soln -] 1 amp NEB PRN #30 amp Albuterol Sulfate Inhaler - [Ventolin Hfa Inhaler -] 1 puff IH PRN PRN #1 inhaler PRN Reason: Short Of Breath/Wheezing Nebulizer [Altera Nebulizer] 1 each MC PRN #1 each - Referrals Referrals: Gunjan Moura MD [Primary Care Provider] - - Patient Instructions Printed Discharge Instructions: DI for Asthma -- Adult Additional Instructions: Increase your activity as tolerated. Resume a regular diet. I have sent your breathing treatment meds to your pharmacy. Follow up with your extension service advisor in one week. If you develop worsening shortness of breath, fever or chills please return to ER immediately. - Post Discharge Activity
--- NOTE | 2019-02-17 09:16 | PDOC ---
Documentation entered by [place] SCRIBE, acting as scribe for Eva Doshi MD. Eva Doshi MD: This documentation has been prepared by the [place]ir[place], SCRIBE, under my direction and personally reviewed by me in its entirety. I confirm that the documentation accurately reflects all work, treatment, procedures, and medical decision making performed by me. Attending Attestation - Resident Resident Name: Scott Amin - ED Attending Attestation I have performed the following: I have examined & evaluated the patient, The case was reviewed & discussed with the resident, I agree w/resident's findings & plan, Exceptions are as noted - HPI HPI: 02/17/19 09:37 The patient is a 48 year old female, with a significant past medical history of asthma (intubation x1, last exacerbation >1 yr ago), chronic gastritis, chronic back pain, and chronic migraines, who presents to the emergency department with , 1 day of shortness of breath and chest tightness without pain similar to previous asthma exacerbations. She notes using her at home Singulair, without relief, prompting her arrival to the ED. As per patient, she had an endoscopy done 02/14 for her chronic gastritis prior to the onset and endorses an episode in the past (approx. 10 yrs ago) which she had to be intubated during surgery. She denies recent fevers, chills, headache or dizziness. She denies recent nausea, vomit, diarrhea or constipation. She denies recent dysuria, frequency, urgency or hematuria. Allergies: Amoxicillin trihydrate, Potassium clavulanate,Sulfonamide antibiotics. Past surgical history: Cholecystectomy. C-sections (x4). Hysterectomy. Social history: Nonsmoker. Denies EtOH use and recreational drug use. Primary Care Physician: Dr. Meneses - Physicial Exam PE: GENERAL: Awake, alert, and fully oriented, in no acute distress HEAD: No signs of trauma EYES: PERRLA, EOMI, sclera anicteric, conjunctiva clear ENT: Auricles normal inspection, hearing grossly normal, nares patent, oropharynx clear without exudates. Moist mucosa NECK: Normal ROM, supple, no lymphadenopathy, JVD, or masses LUNGS: Slightly dec air entry B/L. No wheezes, and no crackles. Speaking full sentences HEART: Regular rate and rhythm, normal S1 and S2, no murmurs, rubs or gallops ABDOMEN: Soft, nontender, normoactive bowel sounds. No guarding, no rebound. No masses EXTREMITIES: Normal range of motion, no edema. No clubbing or cyanosis. No cords, erythema, or tenderness NEUROLOGICAL: Cranial nerves II through XII grossly intact. Normal speech, normal gait. Motor and sensation intact SKIN: Warm, Dry, normal turgor, no rashes or lesions noted. - Medical Decision Making Pt with mild asthma exacerbation. Will give nebs in ED and monitor for improvement.
[2019-02-17] MEDS ORDERED: ALBUTEROL SO4 2.5/IPRATROPIUM 0.5 INH SOL 3 ML VIAL.NEB. NEB ONE ×2 (09:20→10:00)
[2019-02-17] MEDS: ALBUTEROL SO4 2.5/IPRATROPIUM 0.5 INH SOL 3 ML VIAL.NEB. NEB SCH ×4 (09:24→10:28)
[2019-02-17 12:29] VITALS: BP 128/62; TEMP 97.9
== END 2019-02-17 12:30 | disposition home or self-care (01) ==
LOC: JER 07:41
PROC: 3E0F7GC Introduction of Other Therapeutic Substance into Respiratory Tract, Via Natural or Artificial Opening (ICD-10-PCS; principal; 2019-02-17)
DX: J45.21 Mild intermittent asthma with (acute) exacerbation (principal); I10 Essential (primary) hypertension; Z87.19 Personal history of other diseases of the digestive system; Z87.442 Personal history of urinary calculi
CPT/HCPCS: 71045-TC-FY; 94640; 99282-25

== ENCOUNTER 2019-06-20 13:29 | Emergency (ER) | payer OTHER | END 2019-06-20 17:49 | disposition home or self-care (01) | LOC: JER 13:29 ==

== ENCOUNTER 2021-04-01 13:59 | Emergency (ER) | payer OTHER ==
[2021-04-01] MEDS ORDERED: ACETAMINOPHEN 1000 MG/100 ML VIAL (NON FORMULARY) IVPB ONE (14:28)
[2021-04-01 14:34] VITALS: BMI 35.4
[2021-04-01] MEDS ORDERED: ACETAMINOPHEN INJECTION 100 ML IVPB ONE (15:02)
[2021-04-01] MEDS ORDERED: ALBUTEROL SO4 HFA INHALER IH ONE (15:12)
[2021-04-01] MEDS: ALBUTEROL SO4 2.5/IPRATROPIUM 0.5 INH SOL 3 ML VIAL.NEB. NEB SCH ×5 (15:25→15:56)
[2021-04-01 15:30] LABS: EOS % 0.6 % (0-4.5); HEMATOCRIT 42.7 % (32.4-45.2); HEMOGLOBIN 14.4 GM/dL (10.7-15.3); LYMPH % 23.7 % (8-40); MCH 28.8 pg (25.7-33.7); MCHC 33.7 g/dl (32.0-36.0); MEAN CELL VOLUME 85.5 fl (80-96); MONO % 7.7 % (3.8-10.2); PLATELET COUNT 325 10^3/uL (134-434); RBC 4.99 M/mm3 (3.60-5.2); RDW 13.5 % (11.6-15.6); WHITE BLOOD COUNT 5.7 K/mm3 (4.0-10.0)
[2021-04-01 15:46] LABS: INR 0.9 (0.83-1.09); PROTHROMBIN TIME (PATIENT) 11.1 SEC (9.7-13.0)
[2021-04-01 15:48] LABS: CHLORIDE 107 mmol/L (98-107); SODIUM 140 mmol/L (136-145)
[2021-04-01 15:49] LABS: ACTIVATED PTT 27.1 SECONDS (25.2-36.5)
[2021-04-01 15:50] LABS: ALBUMIN 3.7 g/dl (3.4-5.0); ANION GAP 7 MMOL/L (8-16); BLOOD UREA NITROGEN 15.3 mg/dL (7-18); CALCIUM 9.2 mg/dL (8.5-10.1); CO2 27 mmol/L (21-32); GLUCOSE,RANDOM 91 mg/dL (74-106)
[2021-04-01 15:54] LABS: CREATININE 0.7 mg/dL (0.55-1.3); SGOT/AST 40 U/L (15-37); SGPT/ALT 59 U/L (13-61)
[2021-04-01 15:55] LABS: BILIRUBIN,TOTAL 0.8 mg/dL (0.2-1); TOT PROT 7.6 g/dl (6.4-8.2)
[2021-04-01 15:56] LABS: ALK PHOS 203 U/L (45-117)
[2021-04-01] MEDS ORDERED: ALBUTEROL SO4 2.5/IPRATROPIUM 0.5 INH SOL 3 ML VIAL.NEB. NEB ONE (17:22)
[2021-04-01 18:29] VITALS: BP 119/75; PULSE 100; TEMP 98.7
== END 2021-04-01 18:35 | disposition home or self-care (01) ==
LOC: JER 13:59
PROC: 3E0333Z Introduction of Anti-inflammatory into Peripheral Vein, Percutaneous Approach (ICD-10-PCS; principal; 2021-04-01)
PROC: 3E0F7GC Introduction of Other Therapeutic Substance into Respiratory Tract, Via Natural or Artificial Opening (ICD-10-PCS; 2021-04-01)
DX: R05 Cough (principal)
CPT/HCPCS: 36415; 71275-TC; 80053; 82550; 84484; 85025; 85379; 85610; 85730; 93005; 93010; 99285-25; C9803; J0131; Q9967; U0003; U0005

== ENCOUNTER 2021-11-28 17:33 | Emergency (ER) | payer OTHER ==
[2021-11-28 17:46] VITALS: BMI 35.9
[2021-11-28] MEDS ORDERED: FAMOTIDINE 20 MG/50 ML IVPB 20 MG/50 ML MG IVPB ONE ×2 (18:30→20:22)
[2021-11-28] MEDS ORDERED: SODIUM CHLORIDE 1,000 ML IV STA (18:30)
[2021-11-28] MEDS ORDERED: ACETAMINOPHEN 1000 MG/100 ML BAG IVPB ONE (18:30)
[2021-11-28] MEDS ORDERED: ACETAMINOPHEN INJECTION 100 ML IVPB ONE (18:35)
[2021-11-28 18:51] LABS: BASO % 0.6 % (0-2.0); EOS % 1.3 % (0-4.5); HEMATOCRIT 41.6 % (32.4-45.2); HEMOGLOBIN 14.5 GM/dL (10.7-15.3); LYMPH % 27.4 % (8-40); MCH 29.7 pg (25.7-33.7); MCHC 34.8 g/dl (32.0-36.0); MEAN CELL VOLUME 85.4 fl (80-96); MEAN PLT VOLUME 8.4 fl (7.5-11.1); MONO % 8.1 % (3.8-10.2); NEUT % 62.6 % (42.8-82.8); PLATELET COUNT 328 10^3/uL (134-434); RBC 4.88 M/mm3 (3.60-5.2); RDW 13.4 % (11.6-15.6)
[2021-11-28 19:11] LABS: CHLORIDE 107 mmol/L (98-107); SODIUM 138 mmol/L (136-145)
[2021-11-28 19:13] LABS: CALCIUM 9.5 mg/dL (8.5-10.1)
[2021-11-28 19:14] LABS: ALBUMIN 3.9 g/dl (3.4-5.0); BLOOD UREA NITROGEN 13.4 mg/dL (7-18); CO2 28 mmol/L (21-32); GLUCOSE,RANDOM 96 mg/dL (74-106); LIPASE 80 U/L (73-393); MAGNESIUM 2.4 mg/dL (1.8-2.4)
[2021-11-28 19:17] LABS: CREATININE 0.9 mg/dL (0.55-1.3); PHOSPHOROUS 4.2 mg/dL (2.5-4.9); SGOT/AST 73 U/L (15-37); SGPT/ALT 48 U/L (13-61)
[2021-11-28 19:19] LABS: ALK PHOS 206 U/L (45-117); TOT PROT 8.4 g/dl (6.4-8.2)
[2021-11-28 19:21] LABS: ANION GAP 3 MMOL/L (8-16)
[2021-11-28 21:21] LABS: EPI CELLS 35 /uL (0-25.1); HYALINE CASTS 3 /uL (0-3.1); PH,URINE 5.5 (5.0-8.0); URINE APPEARANCE CLEAR; URINE BACTERIA >9,000 /uL (0-1359); URINE BILIRUBIN NEGATIVE (NEGATIVE); URINE COLOR YELLOW; URINE GLUCOSE (UA) NEGATIVE (NEGATIVE); URINE KETONE NEGATIVE (NEGATIVE); URINE LEUK ESTERASE NEGATIVE (NEGATIVE); URINE NITRITE POSITIVE (NEGATIVE); URINE PROTEIN NEGATIVE (NEGATIVE); URINE RBC 7 /uL (0-23.9); URINE UROBILINOGEN 0.2 mg/dL (0.2-1.0); URINE WBC 20 /uL (0-25.8)
[2021-11-28] MEDS ORDERED: CEFTRIAXONE 1,000 MG in DEXTROSE 5%-WATER - 50 ML IVPB ONE (22:44)
[2021-11-28] MEDS ORDERED: CEFTRIAXONE 1 GM/50 ML BAG ONE (22:56)
[2021-11-29 00:30] VITALS: BP 148/82; PULSE 65; TEMP 98
== END 2021-11-29 00:30 | disposition home or self-care (01) ==
LOC: JER 17:33
DX: N39.0 Urinary tract infection, site not specified (principal)
CPT/HCPCS: 36415; 74177-TC; 80053; 81003; 83690; 83735; 84100; 84132; 84703; 85025; 87086; 87186; 99285-25; Q9967

== ENCOUNTER 2022-02-28 15:35 | Emergency (ER) | payer OTHER ==
[2022-02-28 15:52] VITALS: BP 154/111; PULSE 100; TEMP 98.7; BMI 33.6
[2022-02-28] MEDS ORDERED: ALBUTEROL SO4 2.5/IPRATROPIUM 0.5 INH SOL 3 ML VIAL.NEB. NEB ONE ×2 (15:53→15:54)
[2022-02-28] MEDS ORDERED: predniSONE 20 MG TABLET (UD) PO ONE (16:11)
[2022-02-28] MEDS ORDERED: predniSONE 20 MG TABLET (UD) ONE (16:13)
== END 2022-02-28 17:12 | disposition home or self-care (01) ==
LOC: FER 15:35
PROC: 3E0F7GC Introduction of Other Therapeutic Substance into Respiratory Tract, Via Natural or Artificial Opening (ICD-10-PCS; principal; 2022-02-28)
DX: B34.9 Viral infection, unspecified (principal); J45.901 Unspecified asthma with (acute) exacerbation
CPT/HCPCS: 71046-TC-FY; 87804; 99284-25; C9803-CS; U0003; U0005

== ENCOUNTER 2022-11-21 20:00 | Emergency (ER) | payer OTHER ==
[2022-11-21 20:05] VITALS: BP 123/82; PULSE 86; RESP 16; TEMP 98; BMI 25.0
[2022-11-21] MEDS ORDERED: PHENAZOPYRIDINE HCL 100 MG TABLET (FP) PO ONE (20:57)
[2022-11-21] MEDS ORDERED: IBUPROFEN 600 MG TABLET (FP) PO ONE ×2 (20:57→21:10)
[2022-11-21] MEDS ORDERED: ACETAMINOPHEN 500 MG TABLET (FP) PO ONE (20:57)
[2022-11-21] MEDS ORDERED: PHENAZOPYRIDINE HCL 100 MG TABLET (FP) ONE (21:10)
[2022-11-21] MEDS ORDERED: ACETAMINOPHEN 500 MG TABLET (FP) ONE (21:10)
[2022-11-21 21:12] LABS: EPI CELLS 7 /uL (0-25.1); HYALINE CASTS 0 /uL (0-3.1); URINE APPEARANCE CLOUDY; URINE BACTERIA 1889 /uL (0-1359); URINE BILIRUBIN NEGATIVE (NEGATIVE); URINE COLOR YELLOW; URINE GLUCOSE (UA) NEGATIVE (NEGATIVE); URINE KETONE TRACE (NEGATIVE); URINE LEUK ESTERASE 2+ (NEGATIVE); URINE NITRITE NEGATIVE (NEGATIVE); URINE PROTEIN 1+ (NEGATIVE); URINE RBC 169 /uL (0-23.9); URINE WBC 1619 /uL (0-25.8)
[2022-11-21] MEDS ORDERED: CIPROFLOXACIN 500 MG TABLET (RESTRICTED TO ID) PO ONE (21:17)
== END 2022-11-21 21:30 | disposition home or self-care (01) ==
LOC: JERFT 20:00
DX: N30.01 Acute cystitis with hematuria (principal)
CPT/HCPCS: 81003; 87086; 87186; 99283-25

== ENCOUNTER 2024-02-16 15:21 | Emergency (ER) | payer OTHER ==
[2024-02-16 15:32] VITALS: BP 144/83; PULSE 72; RESP 18; TEMP 97.9; BMI 25.2
[2024-02-16] MEDS ORDERED: METOCLOPRAMIDE HCL 10 MG TABLET (FP) PO ONE (16:26)
[2024-02-16] MEDS ORDERED: KETOROLAC TROMETHAMINE 30 MG/1 ML VIAL ONE (16:27)
[2024-02-16] MEDS: METOCLOPRAMIDE HCL 10 MG TABLET (FP) PO ONE (16:31)
[2024-02-16] MEDS: KETOROLAC TROMETHAMINE 30 MG/1 ML VIAL IM ONE (16:31)
== END 2024-02-16 17:27 | disposition home or self-care (01) ==
LOC: JER 15:21
PROC: 3E023GC Introduction of Other Therapeutic Substance into Muscle, Percutaneous Approach (ICD-10-PCS; principal; 2024-02-16)
DX: R51.9 Headache, unspecified (principal); H92.02 Otalgia, left ear; R42 Dizziness and giddiness; H53.8 Other visual disturbances
CPT/HCPCS: 99284-25

== ENCOUNTER 2025-02-18 01:05 | Emergency (ER) | payer OTHER ==
[2025-02-18 01:11] VITALS: TEMP 97.6; BMI 25.7
[2025-02-18 02:06] LABS: EPI CELLS 17 /uL (0-25.1); HYALINE CASTS 1 /uL (0-3.1); URINE APPEARANCE TURBID; URINE BACTERIA 3876 /uL (0-1359); URINE BILIRUBIN NEGATIVE (NEGATIVE); URINE COLOR YELLOW; URINE GLUCOSE (UA) NEGATIVE (NEGATIVE); URINE KETONE TRACE (NEGATIVE); URINE LEUK ESTERASE 2+ (NEGATIVE); URINE NITRITE NEGATIVE (NEGATIVE); URINE PROTEIN 3+ (NEGATIVE); URINE RBC 3348 /uL (0-23.9); URINE WBC 4126 /uL (0-25.8)
[2025-02-18] MEDS ORDERED: KETOROLAC TROMETHAMINE 15 MG/ML VIAL ONE (02:09)
[2025-02-18 02:11] LABS: ABSOLUTE IMMATURE GRANULOCYTES 0.03 x10^3/uL (0.0-0.031); BASOPHILS # 0.03 x10^3/uL (0.01-0.08); EOSINOPHIL % 1.4 % (0.7-5.8); EOSINOPHILS # 0.12 x10^3/uL (0.04-0.36); HEMATOCRIT 39.3 % (34.1-44.9); HEMOGLOBIN 12.7 g/dL (11.2-15.7); MCHC 32.3 g/dl (32.2-35.5); MEAN CELL VOLUME 87.9 fl (79.4-94.8); MEAN PLT VOLUME 9.7 fl (9.4-12.3); MONOCYTE # 0.58 x10^3/uL (0.24-0.86); MONOCYTE % 6.6 % (4.7-12.5); PLATELET COUNT 263 x10^3/uL (182-369); RDW 12.7 % (12.3-16.6)
[2025-02-18] MEDS: SODIUM CHLORIDE 1,000 ML IV STA ×2 (02:20→05:20)
[2025-02-18] MEDS: KETOROLAC TROMETHAMINE 15 MG/ML VIAL IVPUSH ONE (02:20)
[2025-02-18 02:35] LABS: POTASSIUM 4.1 mmol/L (3.5-5.1)
[2025-02-18 02:37] LABS: CALCIUM 9.1 mg/dL (8.5-10.1)
[2025-02-18 02:38] LABS: ALBUMIN 3.6 g/dl (3.4-5.0); BLOOD UREA NITROGEN 34.8 mg/dL (7-18)
[2025-02-18 02:41] LABS: CREATININE 0.8 mg/dL (0.55-1.3)
[2025-02-18 02:42] LABS: BILIRUBIN,TOTAL 0.6 mg/dL (0.2-1)
[2025-02-18 02:43] LABS: TOT PROT 6.8 g/dl (6.4-8.2)
[2025-02-18] MEDS: CIPROFLOXACIN 500 MG TABLET (RESTRICTED TO ID) PO ONE (04:23)
[2025-02-18 04:27] VITALS: RESP 19
[2025-02-18] MEDS ORDERED: CEFTRIAXONE 1 G/50 ML PREMIX 50 ML IVPB ONE (04:28)
[2025-02-18] MEDS: CEFTRIAXONE 1,000 MG in DEXTROSE 5%-WATER - 50 ML IVPB ONE (04:34)
[2025-02-18 09:38] VITALS: BP 110/71; PULSE 75
== END 2025-02-18 09:51 | disposition home or self-care (01) ==
LOC: JER 01:05
PROC: 3E03329 Introduction of Other Anti-infective into Peripheral Vein, Percutaneous Approach (ICD-10-PCS; principal; 2025-02-18)
PROC: 3E0333Z Introduction of Anti-inflammatory into Peripheral Vein, Percutaneous Approach (ICD-10-PCS; 2025-02-18)
PROC: 3E0337Z Introduction of Electrolytic and Water Balance Substance into Peripheral Vein, Percutaneous Approach (ICD-10-PCS; 2025-02-18)
PROC: 3E0337Z Introduction of Electrolytic and Water Balance Substance into Peripheral Vein, Percutaneous Approach (ICD-10-PCS; 2025-02-18)
DX: N30.91 Cystitis, unspecified with hematuria (principal); R10.30 Lower abdominal pain, unspecified; R30.0 Dysuria; R68.83 Chills (without fever)
CPT/HCPCS: 36415; 74177-TC; 80053; 81003; 83735; 85025; 87086; 87186; 99285-25; Q9967

== ENCOUNTER → 2025-03-21 | Day surgery (SDC) | payer OTHER | END | disposition home or self-care (01) | LOC: JRADUS-SUR 10:48 | PROVIDERS: ATTEND Registered Nurse | PROC: 0H9T3ZZ Drainage of Right Breast, Percutaneous Approach (ICD-10-PCS; principal; 2025-03-21) | DX: N60.01 Solitary cyst of right breast (principal) | CPT/HCPCS: 19000; 77065-TC ==